=== PATIENT | male | born 1980 | race American Indian/Alaskan Native ===

== ENCOUNTER → 2016-09-06 | Outpatient (CLI) | payer OTHER | LOC: BMCIMAGING 07:28 | PROVIDERS: ATTEND Physician Assistant | DX: R93.429 Abnormal radiologic findings on diagnostic imaging of unspecified kidney (principal); R79.89 Other specified abnormal findings of blood chemistry ==

== ENCOUNTER 2018-07-22 08:44 | Day surgery (SDC) | payer OTHER ==
[2018-07-22] MEDS ORDERED: fentaNYL 100 MCG/2 ML INJ IVP PRN (09:21)
[2018-07-22] MEDS ORDERED: FLUMAZENIL 0.5 MG/5 ML MDV IVP PRN (09:21)
[2018-07-22] MEDS ORDERED: NALOXONE HCL 0.4 MG/ML INJ IVP PRN (09:21)
[2018-07-22] MEDS ORDERED: MIDAZOLAM 2 MG/2 ML VIAL IVP PRN (09:21)
[2018-07-22] MEDS ORDERED: NS 1,000 ML IV SCH (09:30)
[2018-07-22] MEDS ORDERED: LIDOCAINE 1% 300 MG/30 ML SDV ONE (10:05)
[2018-07-22] MEDS ORDERED: NALOXONE HCL 0.4 MG/ML INJ ONE (10:43)
[2018-07-22] MEDS ORDERED: MIDAZOLAM 2 MG/2 ML VIAL ONE (10:43)
[2018-07-22] MEDS ORDERED: FLUMAZENIL 0.5 MG/5 ML MDV IVP ONE (10:43)
[2018-07-22] MEDS ORDERED: fentaNYL 100 MCG/2 ML INJ ONE (10:43)
--- NOTE | 2018-07-22 10:58 | PDPROPOC ---
Sedation Plan of Care Sedation Plan of Care: vital signs stable, mental status noted, patient educated of risks, benefits, alternatives, patient can tolerate sedation ASA Classification: ASA 1 Planned drugs: fentanyl, midazolam Mallampati Score: Class 1 Mallampati Reference Image: Patient passed 3-3-2 rule?: Yes
--- NOTE | 2018-07-22 10:58 | PDGENHP ---
History & Physical Chief Complaint: Elevated LFTs History of Present Illness: Elevated LFTs Pertinent Past, Social, Family History: Anermia, liver dysfunction, EtOH Relevant Physical Exam: WNL Cardiorespiratory Assessment: WNL
--- NOTE | 2018-07-22 12:25 | PDRADPN ---
Radiology Procedure Note Date of Procedure: 07/22/18 Radiologist: Tushar Villa Anesthesia: IV Sedation (3 mg versed, 150 mcg fentanyl) Pre-op Diagnosis: Elevated LFTs Post-op Diagnosis: Elevated LFTs Indication: Elevated LFTs Procedure: US guided right liver bx Finding(s): 3 18 Ga cores, no immediate complication Inf/Abcess present in the surg proc area at time of surgery?: No Depth: Organ Space (liver) EBL: Minimal Complications: No immediate Specimen(s): 3 18 gauge core
[2018-07-22 14:27] VITALS: BP 118/72
== END 2018-07-22 14:53 | disposition home or self-care (01) ==
LOC: FIMAGING 08:44 → EDSTATUS 10:30 → FIMAGING 14:53
PROVIDERS: ATTEND Physician Assistant
PROC: 0FB03ZX Excision of Liver, Percutaneous Approach, Diagnostic (ICD-10-PCS; principal; 2018-07-22 11:58)
DX: K75.81 Nonalcoholic steatohepatitis (NASH) (principal)
CPT/HCPCS: J2250; J2310; J3010

== ENCOUNTER → 2018-08-30 | Outpatient (CLI) | payer OTHER | LOC: FLAB 13:12 → FIMAGING 13:14 ==